=== PATIENT | female | born 1945 | race Caucasian/White ===

== ENCOUNTER 2024-04-28 18:03 | Emergency (ER) | payer MEDICARE, MEDICAID ==
[2024-04-28 19:42] LABS: BASOPHILS ABSOLUTE AUTO 0.03 K/uL (0.00-0.20); BASOPHILS PERCENT AUTO 0.3 % (0.0-1.0); EOSINOPHILS ABSOLUTE AUTO 0.28 K/uL (0.00-0.45); EOSINOPHILS PERCENT AUTO 3.2 % (0.0-6.0); HEMATOCRIT 42.9 % (37.0-47.0); HEMOGLOBIN 14.1 g/dL (12.0-16.0); IMMATURE GRAN ABSOLUTE AUTO 0.03 K/uL (0.00-0.05); IMMATURE GRAN PERCENT AUTO 0.3 % (0.0-0.4); LYMPHOCYTES ABSOLUTE AUTO 1.98 K/uL (1.00-4.80); LYMPHOCYTES PERCENT AUTO 22.4 % (24.0-44.0); MEAN CORPUSCULAR HEMOGLOBIN 28.6 pg (28.0-32.0); MEAN CORPUSCULAR HGB CONC 32.9 g/dL (32.0-36.0); MEAN PLATELET VOLUME 9.4 fL (9.4-12.3); MONOCYTES ABSOLUTE AUTO 0.81 K/uL (0.00-0.80); MONOCYTES PERCENT AUTO 9.2 % (0.0-8.0); NEUTROPHILS ABSOLUTE AUTO 5.69 K/uL (1.80-7.70); NEUTROPHILS PERCENT AUTO 64.6 % (41.0-71.0); PLATELET COUNT,PLT 408 K/uL (150-400); RED BLOOD CELL COUNT 4.93 M/uL (4.10-5.30); WHITE BLOOD CELL COUNT,WBC 8.82 K/uL (3.9-11.3)
[2024-04-28 20:10] LABS: A/G RATIO 0.6 (0.9-1.6); ALBUMIN 2.7 g/dL (3.4-5.0); BILIRUBIN TOTAL 0.2 mg/dL (0.2-1.0); CALCIUM 8.9 mg/dL (8.5-10.1); CARBON DIOXIDE,CO2 29.9 mmol/L (21.0-32.0); CREATININE 0.8 mg/dL (0.6-1.0); EST CRCL DRUG DOSING (CG) 38.08 mL/min; POTASSIUM,K 3.8 mmol/L (3.5-5.1); PROTEIN TOTAL,TP 7.3 g/dL (6.4-8.2)
[2024-04-28] MEDS: Sodium Chloride 0.9% 10 ML Syringe FLUSH PRN (20:22)
[2024-04-28] MEDS: Sodium Chloride 0.9% 2.5 ML Syringe FLUSH PRN (20:23)
[2024-04-28] MEDS: Iopamidol 755 MG/ML 500 ML Multipack Bottle IVPUSH ONE (20:33)
[2024-04-28] MEDS: Amoxicillin/Clavulanate K 875-125 MG Tab PO STA (21:52)
[2024-04-28] MEDS: Doxycycline 100 MG Cap PO STA (21:52)
== END 2024-04-28 22:04 | disposition home or self-care (01) ==
LOC: MW.ED 18:03
DX: J18.9 Pneumonia, unspecified organism (principal); I10 Essential (primary) hypertension; E78.00 Pure hypercholesterolemia, unspecified; Z79.899 Other long term (current) drug therapy; Z79.02 Long term (current) use of antithrombotics/antiplatelets; Z75.8 Other problems related to medical facilities and other health care
CPT/HCPCS: 36415; 71046; 71260; 80053; 84484; 85025; 93005; 99284; A9270; J3490; Q9967; 93010

== ENCOUNTER 2024-06-19 18:29 | Emergency (ER) | payer MEDICARE, MEDICAID ==
[2024-06-19] MEDS ORDERED: Sodium Chloride 0.9% 2.5 ML Syringe FLUSH PRN (19:42)
[2024-06-19] MEDS ORDERED: Sodium Chloride 0.9% 10 ML Syringe FLUSH PRN (19:42)
[2024-06-19 20:27] LABS: BASOPHILS ABSOLUTE AUTO 0.06 K/uL (0.00-0.20); BASOPHILS PERCENT AUTO 0.5 % (0.0-1.0); EOSINOPHILS ABSOLUTE AUTO 0.19 K/uL (0.00-0.45); EOSINOPHILS PERCENT AUTO 1.6 % (0.0-6.0); HEMATOCRIT 42.4 % (37.0-47.0); HEMOGLOBIN 13.9 g/dL (12.0-16.0); IMMATURE GRAN ABSOLUTE AUTO 0.03 K/uL (0.00-0.05); IMMATURE GRAN PERCENT AUTO 0.3 % (0.0-0.4); LYMPHOCYTES ABSOLUTE AUTO 2.02 K/uL (1.00-4.80); LYMPHOCYTES PERCENT AUTO 17.2 % (24.0-44.0); MEAN CORPUSCULAR HEMOGLOBIN 28.9 pg (28.0-32.0); MEAN CORPUSCULAR HGB CONC 32.8 g/dL (32.0-36.0); MEAN CORPUSCULAR VOLUME 88.1 fL (83.0-99.0); MEAN PLATELET VOLUME 9.8 fL (9.4-12.3); MONOCYTES ABSOLUTE AUTO 0.95 K/uL (0.00-0.80); MONOCYTES PERCENT AUTO 8.1 % (0.0-8.0); NEUTROPHILS ABSOLUTE AUTO 8.48 K/uL (1.80-7.70); NEUTROPHILS PERCENT AUTO 72.3 % (41.0-71.0); PLATELET COUNT,PLT 297 K/uL (150-400); RED BLOOD CELL COUNT 4.81 M/uL (4.10-5.30); WHITE BLOOD CELL COUNT,WBC 11.73 K/uL (3.9-11.3)
[2024-06-19 21:10] LABS: CORONAVIRUS COVID-19 NAA NEGATIVE (NEGATIVE); INFLUENZA A NAA NEGATIVE (NEGATIVE); INFLUENZA B NAA NEGATIVE (NEGATIVE); RESPIRATORY SYNCYTIAL VIR NAA NEGATIVE (NEGATIVE)
[2024-06-19 22:33] LABS: A/G RATIO 0.7 (0.9-1.6); ALBUMIN 2.9 g/dL (3.4-5.0); BILIRUBIN TOTAL 0.4 mg/dL (0.2-1.0); CALCIUM 8.8 mg/dL (8.5-10.1); CARBON DIOXIDE,CO2 28.6 mmol/L (21.0-32.0); CREATININE 0.9 mg/dL (0.6-1.0); EST CRCL DRUG DOSING (CG) 34.89 mL/min; POTASSIUM,K 4.4 mmol/L (3.5-5.1); PROTEIN TOTAL,TP 7.3 g/dL (6.4-8.2)
[2024-06-19] MEDS: Iopamidol 755 MG/ML 500 ML Multipack Bottle IVPUSH ONE (22:54)
[2024-06-19] MEDS: Doxycycline 100 MG Cap PO ONE (23:33)
[2024-06-19] MEDS: Amoxicillin/Clavulanate K 875-125 MG Tab PO ONE (23:33)
== END 2024-06-19 23:45 | disposition home or self-care (01) ==
LOC: MW.ED 18:29
DX: J18.9 Pneumonia, unspecified organism (principal); I25.2 Old myocardial infarction; I10 Essential (primary) hypertension; J44.9 Chronic obstructive pulmonary disease, unspecified; E78.00 Pure hypercholesterolemia, unspecified; Z79.2 Long term (current) use of antibiotics; Z79.899 Other long term (current) drug therapy; Z79.51 Long term (current) use of inhaled steroids; Z79.02 Long term (current) use of antithrombotics/antiplatelets
CPT/HCPCS: 0241U; 36415; 71045; 71275; 80053; 83880; 85025; 85379; 93971; 99284; A9270; Q9967

== ENCOUNTER 2024-06-25 16:16 | Emergency (ER) | payer MEDICARE, MEDICAID | END 2024-06-25 17:46 | disposition home or self-care (01) | LOC: MW.ED 16:16 | DX: S09.90XA Unspecified injury of head, initial encounter (principal); I10 Essential (primary) hypertension; E78.00 Pure hypercholesterolemia, unspecified; Z75.8 Other problems related to medical facilities and other health care; Z79.899 Other long term (current) drug therapy; W19.XXXA Unspecified fall, initial encounter; W22.8XXA Striking against or struck by other objects, initial encounter | CPT/HCPCS: 70450; 70450-26; 72125; 72125-26; 93005; 93010; 99282; 99284 ==

== ENCOUNTER 2024-07-02 13:10 | Emergency (ER) | payer MEDICARE, MEDICAID | END 2024-07-02 16:20 | disposition home or self-care (01) | LOC: MW.ED 13:10 | DX: S22.030A Wedge compression fracture of third thoracic vertebra, initial encounter for closed fracture (principal); S06.0XAA Concussion with loss of consciousness status unknown, initial encounter; W19.XXXA Unspecified fall, initial encounter; Z75.8 Other problems related to medical facilities and other health care | CPT/HCPCS: 70450; 70450-26; 72125; 72125-26; 73502-26-RT; 73502-RT; 73552-26-LT; 73552-RT; 99284 ==

== ENCOUNTER 2024-09-25 09:27 | Emergency (ER) | payer MEDICARE, MEDICAID ==
[2024-09-25] MEDS: Furosemide 40 MG/4 ML VIAL IVPUSH ONE (10:06)
[2024-09-25] MEDS: Sodium Chloride 0.9% 10 ML Syringe FLUSH PRN (10:06)
[2024-09-25 10:17] LABS: BASOPHILS ABSOLUTE AUTO 0.07 K/uL (0.00-0.20); BASOPHILS PERCENT AUTO 0.4 % (0.0-1.0); EOSINOPHILS ABSOLUTE AUTO 0.11 K/uL (0.00-0.45); EOSINOPHILS PERCENT AUTO 0.6 % (0.0-6.0); HEMATOCRIT 40.5 % (37.0-47.0); HEMOGLOBIN 13.7 g/dL (12.0-16.0); IMMATURE GRAN ABSOLUTE AUTO 0.12 K/uL (0.00-0.05); IMMATURE GRAN PERCENT AUTO 0.7 % (0.0-0.4); LYMPHOCYTES ABSOLUTE AUTO 3.19 K/uL (1.00-4.80); LYMPHOCYTES PERCENT AUTO 18.1 % (24.0-44.0); MEAN CORPUSCULAR HEMOGLOBIN 28.4 pg (28.0-32.0); MEAN CORPUSCULAR HGB CONC 33.8 g/dL (32.0-36.0); MEAN PLATELET VOLUME 9.8 fL (9.4-12.3); MONOCYTES ABSOLUTE AUTO 1.19 K/uL (0.00-0.80); MONOCYTES PERCENT AUTO 6.7 % (0.0-8.0); NEUTROPHILS ABSOLUTE AUTO 12.98 K/uL (1.80-7.70); NEUTROPHILS PERCENT AUTO 73.5 % (41.0-71.0); PLATELET COUNT,PLT 530 K/uL (150-400); RED BLOOD CELL COUNT 4.82 M/uL (4.10-5.30); WHITE BLOOD CELL COUNT,WBC 17.66 K/uL (3.9-11.3)
[2024-09-25] MEDS: cefTRIAXone 2 GM in Sodium Chloride 0.9% 50 ML IV ONE (10:31)
[2024-09-25 10:32] LABS: PH,VENOUS 7.45 (7.31-7.41)
[2024-09-25 10:56] LABS: D-DIMER QUANTITATIVE 4.16 mg/L FEU (0.00-0.50); INR 1.23 (0.86-1.11)
[2024-09-25 11:17] LABS: A/G RATIO 0.3 (0.9-1.6); ALBUMIN 1.8 g/dL (3.4-5.0); BILIRUBIN TOTAL 0.5 mg/dL (0.2-1.0); CALCIUM 8.4 mg/dL (8.5-10.1); CARBON DIOXIDE,CO2 23.5 mmol/L (21.0-32.0); CREATININE 0.7 mg/dL (0.6-1.0); EST CRCL DRUG DOSING (CG) 46.81 mL/min; MAGNESIUM 2.1 mg/dL (1.8-2.4); POTASSIUM,K 3.5 mmol/L (3.5-5.1); PROTEIN TOTAL,TP 7.4 g/dL (6.4-8.2)
[2024-09-25] MEDS: Doxycycline 100 MG in Sodium Chloride 0.9% 100 ML IV ONE (11:21)
[2024-09-25 11:28] LABS: PH,VENOUS 7.43 (7.31-7.41)
[2024-09-25] MEDS: Iopamidol 755 MG/ML 500 ML Multipack Bottle IVPUSH STA (12:56)
[2024-09-25] MEDS: VANCOmycin 1 GM in Sodium Chloride 0.9% 250 ML IV ONE (14:00)
[2024-09-25] MEDS: Ampicillin/Sulbactam Na 3 GM in Sodium Chloride 0.9% 100 ML IV ONE (14:41)
[2024-09-25] MEDS ORDERED: LORazepam 2 MG/ML SDV IVPUSH PRN (15:27)
== END 2024-09-25 17:17 ==
LOC: MW.ED 09:27
DX: J96.01 Acute respiratory failure with hypoxia (principal); J18.9 Pneumonia, unspecified organism; I45.10 Unspecified right bundle-branch block; J90 Pleural effusion, not elsewhere classified; I25.10 Atherosclerotic heart disease of native coronary artery without angina pectoris; I10 Essential (primary) hypertension; E78.00 Pure hypercholesterolemia, unspecified; Z90.710 Acquired absence of both cervix and uterus; Z88.6 Allergy status to analgesic agent; Z79.899 Other long term (current) drug therapy
CPT/HCPCS: 36415; 70450; 71045; 71275; 72125; 80053; 82803; 83605; 83735; 83880; 84484; 85025; 85379; 85610; 87040; 87428; 93005; 94660; 96365; 96367; 96368; 96375; 99285; J0295; J0696; J1940; J3490; J7050; Q9967; 93010; 99284

== ENCOUNTER 2024-09-28 06:17 | Inpatient (IN) | payer MEDICARE, MEDICAID ==
[2024-09-28] MEDS ORDERED: Acetaminophen 650 MG Supp RECTAL PRN (06:26)
[2024-09-28] MEDS ORDERED: Scopalamine 1mg/3day Transdermal Patch TRDERM PRN (06:26)
[2024-09-28] MEDS: Morphine 10 MG/0.5 ML Oral Syringe SL PRN (09:04)
[2024-09-28] MEDS: LORazepam ORAL Concentrate 1MG/0.5ML U/D SL PRN (09:44)
[2024-09-28] MEDS: Morphine 10 MG/0.5 ML Oral Syringe SL SCH (11:23)
[2024-09-28] MEDS ORDERED: Bisacodyl 10 MG Supp RECTAL PRN (16:23)
[2024-09-29] MEDS: Atropine 1% Ophth Soln 5 ML Bottle SL PRN (11:33)
== END 2024-09-29 18:59 | disposition expired | DRG 177 ==
LOC: MW.MS 06:17
PROVIDERS: ADMIT Family Medicine; ATTEND Family Medicine
DX: J69.0 Pneumonitis due to inhalation of food and vomit (principal); J96.01 Acute respiratory failure with hypoxia; R64 Cachexia; Z68.1 Body mass index [BMI] 19.9 or less, adult; J44.0 Chronic obstructive pulmonary disease with (acute) lower respiratory infection; J91.8 Pleural effusion in other conditions classified elsewhere; J18.9 Pneumonia, unspecified organism; Z66 Do not resuscitate; I25.10 Atherosclerotic heart disease of native coronary artery without angina pectoris; E78.00 Pure hypercholesterolemia, unspecified; I10 Essential (primary) hypertension; R91.8 Other nonspecific abnormal finding of lung field; F03.C0 Unspecified dementia, severe, without behavioral disturbance, psychotic disturbance, mood disturbance, and anxiety; Z51.5 Encounter for palliative care; Z88.6 Allergy status to analgesic agent; Z79.02 Long term (current) use of antithrombotics/antiplatelets; Z79.899 Other long term (current) drug therapy; Z95.1 Presence of aortocoronary bypass graft; Z90.710 Acquired absence of both cervix and uterus; Z99.81 Dependence on supplemental oxygen
CPT/HCPCS: A9270-GY; J3490